=== PATIENT | female | born 1965 | race Caucasian/White ===

== ENCOUNTER 2017-05-14 08:19 | Emergency (ER) | payer OTHER ==
[~2017-05-14] VITALS: Ht 170.2 cm; Wt 104.3 kg
[~2017-05-14 08:19] MED LIST: ASPI-992 PO; CYAN100053 IJ; DOCU100C37 PO; FLC100T1 PO; FLUO20CA25 PO; FLUO20CA42 PO; FLUT16SP22 NS; FLUT50DI IH; HYDR-3454 PO; HYDR-3816 PO; HYDR-757 PO; IBUP-1773 PO; IBUP1TAB17 PO; INSASP10V SQ; INSU100V6 SQ; LEVO100T7 PO; LEVO88TA26 PO; LISI-552 PO; LISI1TAB8 PO; MAGN400C PO; MECL25TA56 PO; METF-472 PO; METF500T8 PO; MTF500T PO; NYSTATIN PO; ONDN4T PO; PHEN37.53 PO; PHEN37.555 PO; POTA99TA15 PO; SIME80TA16 PO; SULF-222 PO; lantus SQ; potassium PO
[2017-05-14] MEDS ORDERED: SYNTHROID (08:37)
[2017-05-14 08:50] LABS: BILIRUBIN,URINE NEGATIVE (NEGATIVE); KETONES,URINE NEGATIVE (NEGATIVE); LEUKOCYTE ESTERASE ,URINE NEGATIVE (NEGATIVE); NITRITE,URINE NEGATIVE (NEGATIVE); PH,URINE 5 (5-9); PROTEIN,URINE 2+ (NEGATIVE); UROBILINOGEN,URINE NORMAL (NORMAL)
[2017-05-14 09:04] LABS: WBC,URINE RARE /HPF
[2017-05-14 09:22] LABS: BASOPHILS % (AUTO) 0 % (0-10); EOSINOPHILS % (AUTO) 0 % (0-10); LYMPHOCYTES # (AUTO) 1.3 X 10^3 (1.0-4.0); LYMPHOCYTES % (AUTO) 15 % (12-44); MEAN CORPUSCULAR HEMOGLOBIN 28 PG (25-34); MEAN CORPUSCULAR HGB CONC 33 G/DL (32-36); MEAN CORPUSCULAR VOLUME 85 FL (80-99); MONOCYTES # (AUTO) 0.2 X 10^3 (0.0-1.0); MONOCYTES % (AUTO) 3 % (0-12); NEUTROPHILS # (AUTO) 7.3 X 10^3 (1.8-7.8); NEUTROPHILS % (AUTO) 82 % (42-75); PLATELET COUNT 333 10^3/uL (130-400); RED BLOOD COUNT 3.85 10^6/uL (4.35-5.85); RED CELL DISTRIBUTION WIDTH 12.8 % (10.0-14.5); WHITE BLOOD COUNT 8.8 10^3/uL (4.3-11.0)
[2017-05-14 09:44] LABS: ALANINE AMINOTRANSFERASE 13 U/L (0-55); ALBUMIN 3.8 GM/DL (3.2-4.5); ANION GAP 8 MMOL/L (5-14); ASPARTATE AMINO TRANSFERASE 30 U/L (5-34); BILIRUBIN,TOTAL 0.3 MG/DL (0.1-1.0); BLOOD UREA NITROGEN 24 MG/DL (7-18); BUN/CREATININE RATIO 25 (0-20); CALCIUM 8.6 MG/DL (8.5-10.1); CARBON DIOXIDE 24 MMOL/L (21-32); CHLORIDE 105 MMOL/L (98-107); CREATININE SERUM 0.95 MG/DL (0.60-1.30); GFR ESTIMATED > 60; GLUCOSE 250 MG/DL (70-105); HEMOLYSIS 3 (-100-29); ICTERUS 0.4 (-100-1.9); LIPEMIA -1 (-100-49); POTASSIUM 4.7 MMOL/L (3.6-5.0); SODIUM 137 MMOL/L (135-145); TOTAL PROTEIN 6.8 GM/DL (6.4-8.2)
[2017-05-14 09:50] LABS: ACETAMINOPHEN < 10 UG/ML (10-30); ALCOHOL < 10 MG/DL (<10)
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
--- NOTE | 2017-05-14 11:04 | Diagnostic Imaging Report ---
PROCEDURE: CT head without contrast. TECHNIQUE: Multiple contiguous axial images were obtained through the brain without the use of intravenous contrast. INDICATION: Altered mental status . FINDINGS: There is no intracranial hemorrhage, edema or mass effect. The brain parenchyma appears unremarkable. No hydrocephalus. The visualized portions of the orbits and paranasal sinuses appear unremarkable. IMPRESSION: Unremarkable study. Dictated by: Dictated on workstation # [id number]
[2017-05-14 11:38] VITALS: BP 137/73
--- OUTSIDE RECORDS SUMMARY | 2017-05-14 22:52 | XMS REPORT | Continuity of Care Document ---
Author Author [facility] Organization [facility] Address Unknown Phone Unavailable Allergies Active Description Code Type Severity Reaction Onset Reported/Identified Relationship to Patient Clinical Status Yes No Known Drug Allergies [id number] Drug Allergy Unknown N/ A 02/16/2016 Medications Problems Date Dx Coded Attending Type Code Diagnosis Diagnosed By 07/25/2014 FRANKLIN BASILIO DO Ot 021.9 TULAREMIA NOS 07/25/2014 FRANKLIN BASILIO DO Ot 088.81 LYME DISEASE 07/25/2014 FRANKLIN BASILIO DO Ot 250.01 DIAB ARNAUD WO COMPL, TYPE I [JUVENILE TYP 07/25/2014 FRANKLIN BASILIO DO Ot 276.51 DEHYDRATION 07/25/2014 FRANKLIN BASILIO DO Ot 278.00 OBESITY, NOS 07/25/2014 FRANKLIN BASILIO DO Ot 401.9 HYPERTENSION NOS 07/25/2014 FRANKLIN BASILIO DO Ot 584.9 ACUTE RENAL FAILURE, UNSPECIFIED 07/25/2014 FRANKLIN BASILIO DO Ot 780.4 DIZZINESS AND GIDDINESS 07/25/2014 FRANKLIN BASILIO DO Ot 784.0 HEADACHE 07/25/2014 FRANKLIN BASILIO DO Ot 787.02 NAUSEA ALONE 07/25/2014 FRANKLIN BASILIO DO Ot V85.36 BODY MASS INDEX 36.0-36.9, ADULT 09/20/2014 SMITH BASILIO Ot 021.9 TULAREMIA NOS 08/05/2015 STEFANY MARROQUIN APRN Ot 813.44 FX LOW RADIUS W ULNA-CL 08/05/2015 STEFANY MARROQUIN APRN Ot 959.3 ELB/FOREARM/WRST INJ NOS 08/05/2015 STEFANY MARROQUIN APRN Ot E000.8 OTHER EXTERNAL CAUSE STATUS 08/05/2015 STEFANY MARROQUIN APRN Ot E885.9 FALL FROM SLIPPING, TRIPPING, OR STUMBLI 11/18/2015 SMITH BASILIO Ot E03.9 11/18/2015 CHETNASMITH QA SOFTWARE TESTER Ot E10.9 11/18/2015 CHETNASMITH QA SOFTWARE TESTER Ot E23.0 11/18/2015 BASILIOSMITH STOLL QA SOFTWARE TESTER Ot M79.1 11/18/2015 CHETNASMITH QA SOFTWARE TESTER Ot R60.9 01/17/2016 CHETNASMITH QA SOFTWARE TESTER Ot E01.0 02/10/2016 Ot 255.41 02/10/2016 Ot 250.01 02/10/2016 Ot 518.89 02/10/2016 Ot 611.72 02/10/2016 Ot 785.6 02/10/2016 Ot 786.2 02/10/2016 Ot V76.12 02/10/2016 Ot 518.89 02/10/2016 Ot 611.72 02/10/2016 Ot 217 02/10/2016 Ot 786.50 02/10/2016 Ot V58.67 02/10/2016 Ot V58.69 02/10/2016 CHETNASMITH QA SOFTWARE TESTER Ot 790.99 02/10/2016 CHETNASMITH QA SOFTWARE TESTER Ot 368.8 02/10/2016 CHETNASMITH QA SOFTWARE TESTER Ot 784.0 02/10/2016 CHETANSMITH QA SOFTWARE TESTER Ot 794.4 02/10/2016 Ot 021.9 02/10/2016 CHETNASMITH QA SOFTWARE TESTER Ot E03.9 02/10/2016 CHETNA SMITH Berry QA SOFTWARE TESTER Ot E10.9 02/10/2016 CHETNASMITH QA SOFTWARE TESTER Ot E23.0 02/10/2016 CHETNA SMITH Berry QA SOFTWARE TESTER Ot M79.1 02/10/2016 CHETNA SMITH Berry QA SOFTWARE TESTER Ot R60.9 02/10/2016 CHETNA SMITH L QA SOFTWARE TESTER Ot E01.0 02/10/2016 STEPHANIE RIVERA, LYNNE Prieto Ot E04.1 NONTOXIC SINGLE THYROID NODULE 02/10/2016 STEPHANIE RIVERA, LYNNE Prieto Ot L91.8 OTHER HYPERTROPHIC DISORDERS OF THE SKIN 02/10/2016 STEPHANIE RIVERA, LYNNE M Ot Z01.812 ENCOUNTER FOR PREPROCEDURAL LABORATORY E 02/10/2016 STEPHANIE RIVERA, LYNNE M Ot Z11.2 ENCOUNTER FOR SCREENING FOR OTHER BACTER 02/11/2016 STEPHANIE RIVERA, LYNNE M Ot E04.1 02/11/2016 STEPHANIE RIVERA, LYNNE Prieto Ot L91.8 02/11/2016 STEPHANIE RIVERA, LYNNE M Ot Z01.812 02/11/2016 STEPHANIE RIVERA, LYNNE Prieto Ot Z11.2 02/16/2016 STEPHANIE RIVERA, LYNNE Prieto Ot E04.1 02/16/2016 STEPHANIE RIVERA, LYNNE Prieto Ot L91.8 02/16/2016 STEPHANIE RIVERA, LYNNE M Ot Z01.812 02/16/2016 STEPHANIE RIVERA, LYNNE M Ot Z11.2 02/16/2016 Ot 021.9 02/17/2016 STEPHANIE RIVERA, LYNNE Prieto Ot E04.1 NONTOXIC SINGLE THYROID NODULE 02/17/2016 STEPHANIE RIVERA, LYNNE Prieto Ot E11.9 TYPE 2 DIABETES MELLITUS WITHOUT COMPLIC 02/17/2016 STEPHANIE RIVERA, LYNNE Prieto Ot L91.8 OTHER HYPERTROPHIC DISORDERS OF THE SKIN 07/19/2016 SMITH BASILIO QA SOFTWARE TESTER Ot R10.2 PELVIC AND PERINEAL PAIN 07/19/2016 SMITH BASILIO QA SOFTWARE TESTER Ot Z12.31 ENCNTR SCREEN MAMMOGRAM FOR MALIGNANT NE 07/20/2016 SMITH BASILIO QA SOFTWARE TESTER Ot R10.2 PELVIC AND PERINEAL PAIN 07/20/2016 SMITH BASILIO QA SOFTWARE TESTER Ot Z12.31 ENCNTR SCREEN MAMMOGRAM FOR MALIGNANT NE 08/02/2016 SMITH BASILIO QA SOFTWARE TESTER Ot R10.2 PELVIC AND PERINEAL PAIN 08/02/2016 SMITH BASILIO QA SOFTWARE TESTER Ot Z12.31 ENCNTR SCREEN MAMMOGRAM FOR MALIGNANT NE 09/11/2016 Ot 786.50 CHEST PAIN NOS 09/11/2016 Ot V58.67 LONG-TERM (CURRENT) USE OF INSULIN 09/11/2016 Ot V58.69 OTH MED,LT,CURRENT USE 09/11/2016 SMITH BASILIO QA SOFTWARE TESTER Ot 790.99 BLOOD EXAM - OTH NONSPECIFIC FINDINGS 09/11/2016 SMITH BASILIO QA SOFTWARE TESTER Ot 368.8 VISUAL DISTURBANCES NEC 09/11/2016 SMITH BASILIO QA SOFTWARE TESTER Ot 784.0 HEADACHE 09/11/2016 SMITH BASILIO QA SOFTWARE TESTER Ot 794.4 ABN KIDNEY FUNCT STUDY 09/11/2016 Ot 021.9 TULAREMIA NOS 09/11/2016 BASILIOSMITH STOLL QA SOFTWARE TESTER Ot E03.9 HYPOTHYROIDISM, UNSPECIFIED 09/11/2016 BASILIOSMITH STOLL QA SOFTWARE TESTER Ot E10.9 TYPE 1 DIABETES MELLITUS WITHOUT COMPLIC 09/11/2016 BASILIOSMITH STOLL QA SOFTWARE TESTER Ot 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 09/11/2016 BASILIOSMITH STOLL QA SOFTWARE TESTER Ot M79.1 MYALGIA 09/11/2016 BASILIOSMITH STOLL QA SOFTWARE TESTER Ot R60.9 EDEMA, UNSPECIFIED 09/11/2016 BASILIOSMITH STOLL QA SOFTWARE TESTER Ot 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 09/11/2016 BASILIO SMITH Berry QA SOFTWARE TESTER Ot R10.2 PELVIC AND PERINEAL PAIN 09/11/2016 BASILIOSMITH STOLL QA SOFTWARE TESTER Ot Z12.31 ENCNTR SCREEN MAMMOGRAM FOR MALIGNANT NE 09/11/2016 PAEVL PAPPAS DO Ot D25.9 LEIOMYOMA OF UTERUS, UNSPECIFIED 09/11/2016 PAVEL PAPPAS DO Ot R10.2 PELVIC AND PERINEAL PAIN 09/11/2016 PAVEL PAPPAS DO Ot Z01.812 ENCOUNTER FOR PREPROCEDURAL LABORATORY E 09/11/2016 PAVEL PAPPAS DO Ot Z11.2 ENCOUNTER FOR SCREENING FOR OTHER BACTER 09/12/2016 PAVEL PAPPAS DO Ot D25.9 LEIOMYOMA OF UTERUS, UNSPECIFIED 09/12/2016 PAVEL PAPPAS DO Ot R10.2 PELVIC AND PERINEAL PAIN 09/12/2016 PAVEL PAPPAS DO Ot Z01.812 ENCOUNTER FOR PREPROCEDURAL LABORATORY E 09/12/2016 PAVEL PAPPAS DO Ot Z11.2 ENCOUNTER FOR SCREENING FOR OTHER BACTER 09/26/2016 Ot 786.50 CHEST PAIN NOS 09/26/2016 Ot V58.67 LONG-TERM (CURRENT) USE OF INSULIN 09/26/2016 Ot V58.69 OTH MED,LT,CURRENT USE 09/26/2016 SMITH BASILIO QA SOFTWARE TESTER Ot 790.99 BLOOD EXAM - OTH NONSPECIFIC FINDINGS 09/26/2016 SMITH BASILIO QA SOFTWARE TESTER Ot 368.8 VISUAL DISTURBANCES NEC 09/26/2016 SMITH BASILIO QA SOFTWARE TESTER Ot 784.0 HEADACHE 09/26/2016 SMITH BASILIO QA SOFTWARE TESTER Ot 794.4 ABN KIDNEY FUNCT STUDY 09/26/2016 Ot 021.9 TULAREMIA NOS 09/26/2016 SMITH BASILIO QA SOFTWARE TESTER Ot E03.9 HYPOTHYROIDISM, UNSPECIFIED 09/26/2016 SMITH BASILIO QA SOFTWARE TESTER Ot E10.9 TYPE 1 DIABETES MELLITUS WITHOUT COMPLIC 09/26/2016 BASILIOSMITH STOLL QA SOFTWARE TESTER Ot 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 09/26/2016 BASILIOSMITH STOLL QA SOFTWARE TESTER Ot M79.1 MYALGIA 09/26/2016 BASILIO SMITH Berry QA SOFTWARE TESTER Ot R60.9 EDEMA, UNSPECIFIED 09/26/2016 SMITH BASILIO QA SOFTWARE TESTER Ot 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 09/26/2016 SMITH BASILIO QA SOFTWARE TESTER Ot R10.2 PELVIC AND PERINEAL PAIN 09/26/2016 SMITH BASILIO QA SOFTWARE TESTER Ot Z12.31 ENCNTR SCREEN MAMMOGRAM FOR MALIGNANT NE 09/26/2016 SMITH BASILIO QA SOFTWARE TESTER Ot R10.2 PELVIC AND PERINEAL PAIN 09/26/2016 BASILIOSMITH STOLL QA SOFTWARE TESTER Ot R92.8 OTH ABN AND INCONCLUSIVE FINDINGS ON DX 09/27/2016 SMITH BASILIO QA SOFTWARE TESTER Ot R92.8 OTH ABN AND INCONCLUSIVE FINDINGS ON DX 09/28/2016 SMITH BASILIO QA SOFTWARE TESTER Ot R10.2 PELVIC AND PERINEAL PAIN 09/28/2016 Ot 786.50 CHEST PAIN NOS 09/28/2016 Ot V58.67 LONG-TERM (CURRENT) USE OF INSULIN 09/28/2016 Ot V58.69 OTH MED,LT,CURRENT USE 09/28/2016 BASILIOSMITH STOLL QA SOFTWARE TESTER Ot 790.99 BLOOD EXAM - OTH NONSPECIFIC FINDINGS 09/28/2016 SMITH BASILIO QA SOFTWARE TESTER Ot 368.8 VISUAL DISTURBANCES NEC 09/28/2016 SMITH BASILIO QA SOFTWARE TESTER Ot 784.0 HEADACHE 09/28/2016 SMITH BASILIO QA SOFTWARE TESTER Ot 794.4 ABN KIDNEY FUNCT STUDY 09/28/2016 Ot 021.9 TULAREMIA NOS 09/28/2016 SMITH BASILIO QA SOFTWARE TESTER Ot E03.9 HYPOTHYROIDISM, UNSPECIFIED 09/28/2016 SMITH BASILIO QA SOFTWARE TESTER Ot E10.9 TYPE 1 DIABETES MELLITUS WITHOUT COMPLIC 09/28/2016 SMITH BASILIO QA SOFTWARE TESTER Ot 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 09/28/2016 BASILIOSMITH STOLL QA SOFTWARE TESTER Ot M79.1 MYALGIA 09/28/2016 BASILIOSMITH STOLL QA SOFTWARE TESTER Ot R60.9 EDEMA, UNSPECIFIED 09/28/2016 SMITH BASILIO QA SOFTWARE TESTER Ot 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 09/28/2016 SMITH BASILIO QA SOFTWARE TESTER Ot R10.2 PELVIC AND PERINEAL PAIN 09/28/2016 SMITH BASILIO QA SOFTWARE TESTER Ot Z12.31 ENCNTR SCREEN MAMMOGRAM FOR MALIGNANT NE 09/28/2016 BASILIO SMITH Berry QA SOFTWARE TESTER Ot R10.2 PELVIC AND PERINEAL PAIN 09/28/2016 BASILIOSMITH STOLL QA SOFTWARE TESTER Ot R92.8 OTH ABN AND INCONCLUSIVE FINDINGS ON DX 09/29/2016 PAVEL PAPPAS DO Ot D25.1 INTRAMURAL LEIOMYOMA OF UTERUS 09/29/2016 PAVEL PAPPAS DO Ot D25.9 LEIOMYOMA OF UTERUS, UNSPECIFIED 09/29/2016 PAVEL PAPPAS DO Ot 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 09/29/2016 PAVEL PAPPAS DO Ot R10.2 PELVIC AND PERINEAL PAIN 10/04/2016 PAVEL PAPPAS DO Ot D25.1 INTRAMURAL LEIOMYOMA OF UTERUS 10/04/2016 PAVEL PAPPAS DO Ot 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 10/04/2016 PAVEL PAPPAS DO S Ot R10.2 PELVIC AND PERINEAL PAIN 10/04/2016 SMITH BASILIO QA SOFTWARE TESTER Ot R10.2 PELVIC AND PERINEAL PAIN 10/11/2016 SMITH BASILIOP Ot R92.8 OTH ABN AND INCONCLUSIVE FINDINGS ON DX 11/03/2016 SMITH BASILIO QA SOFTWARE TESTER Ot M48.06 SPINAL STENOSIS, LUMBAR REGION 11/17/2016 SMITH BASILIO QA SOFTWARE TESTER Ot M48.06 SPINAL STENOSIS, LUMBAR REGION Procedures Results Test Result Range Complete blood count (CBC) with automated white blood cell (WBC) differential - 09/11/16 15:40 Blood leukocytes automated count (number/volume) 5.7 10*3/ uL 4.3-11.0 Blood erythrocytes automated count (number/volume) 3.92 10*6 /uL 4.35-5.85 Venous blood hemoglobin measurement (mass/volume) 11.0 g/dL 11.5-16.0 Blood hematocrit (volume fraction) 34 % 35-52 Automated erythrocyte mean corpuscular volume 86 [foz_us] 80-99 Automated erythrocyte mean corpuscular hemoglobin (mass per erythrocyte) 28 pg 25-34 Automated erythrocyte mean corpuscular hemoglobin concentration measurement ( mass/volume) 33 g/dL 32-36 Automated erythrocyte distribution width ratio 12.9 % 10.0-14.5 Automated blood platelet count (count/volume) 350 10*3/uL 130-400 Automated blood platelet mean volume measurement 10.2 [foz_ us] 7.4-10.4 Automated blood neutrophils/100 leukocytes 50 % 42-75 Automated blood lymphocytes/100 leukocytes 40 % 12-44 Blood monocytes/100 leukocytes 6 % 0-12 Automated blood eosinophils/100 leukocytes 3 % 0-10 Automated blood basophils/100 leukocytes 1 % 0-10 Blood neutrophils automated count (number/volume) 2.9 10*3 1.8-7.8 Blood lymphocytes automated count (number/volume) 2.3 10*3 1.0-4.0 Blood monocytes automated count (number/volume) 0.4 10*3 0.0-1.0 Automated eosinophil count 0.2 10*3/uL 0.0-0.3 Automated blood basophil count (count/volume) 0.0 10*3/uL 0.0-0.1 Blood type T Indirect antibody screen panel - 09/11/16 15:40 ABO+Rh group OP NRG Blood group antibody screen NEGATIVE NRG Methicillin resistant Staphylococcus aureus (MRSA) screening culture - 15:40 Methicillin resistant Staphylococcus aureus (MRSA) screening culture NEG NRG Urine beta human chorionic gonadotropin (hCG) measurement - 09/28/16 06:10 Urine beta human chorionic gonadotropin (hCG) measurement NEGATIVE NEGATIVE Capillary blood glucose measurement by glucometer (mass/volume) - 09/28/16 06: 33 Capillary blood glucose measurement by glucometer (mass/volume) 330 mg/dL 70-110 Blood type T Indirect antibody screen panel - 09/28/16 06:33 ABO+Rh group OP NRG Transfusion band number [id number] NRG Blood group antibody screen NEGATIVE NRG Capillary blood glucose measurement by glucometer (mass/volume) - 09/28/16 09: 18 Capillary blood glucose measurement by glucometer (mass/volume) 292 mg/dL 70-110 Encounters ACCT No. Visit Date/Time Discharge Status Pt. Type Provider Facility Loc./Unit Complaint [id number] 09/28/2016 06:10:00 2015 11:46:00 DIS Outpatient PAVEL PAPPAS DO [facility] SDC PELVIC PAIN [id number] 09/11/2016 15:14:00 2015 15:45:00 DIS Outpatient PAVEL PAPPAS DO [facility] PREOP PELVIC PAIN [id number] 02/10/2016 08:48:00 2015 09:25:00 DIS Outpatient STEPHANIE RIVERA, LYNNE Prieto [facility] PREOP THYROID NODULE [id number] 08/05/2015 16:07:00 2014 17:11:00 DIS Emergency STEFANY MARROQUIN APRN [facility] ER L WRIST PAIN/INJ [id number] 07/10/2014 10:18:00 2013 00:01:00 DIS Outpatient SMITH BASILIO [facility] SURG RCR TU/ANEMIA [id number] 08/17/2014 08:28:00 2013 23:59:59 CLS Outpatient SMITH BASILIO QA SOFTWARE TESTER [facility] RAD HEADACHE BLURRY VISION [id number] 07/31/2014 13:52:00 2013 23:59:59 CLS Preadmit FRANKLIN BASILIO DO [facility] LAB [id number] 07/29/2014 10:51:00 2013 23:59:59 CLS Outpatient SMITH BASILIO QA SOFTWARE TESTER [facility] LAB ELEVATED BUN AND CREATINE [id number] 07/21/2014 18:42:00 2013 12:20:00 DIS Inpatient FRANKLIN BASILIO DO [facility] 4TH ARF,UTI [id number] 10/31/2016 12:17:00 ACT Outpatient SMITH BASILIO QA SOFTWARE TESTER [facility] RAD RADIOCULOPATHY [id number] 09/26/2016 08:25:00 ACT Outpatient RICCARDO BASILIOIA Jamal QA SOFTWARE TESTER [facility] RAD ABN MAMMO [id number] 09/22/2016 10:04:00 ACT Outpatient SMITH BASILIO QA SOFTWARE TESTER [facility] RAD PELVIC PAIN [id number] 07/18/2016 13:48:00 ACT Outpatient RICCARDO BASILIOIA Jamal QA SOFTWARE TESTER [facility] RAD PELVIC PAIN,ROUTINE [id number] 02/16/2016 08:15:00 ACT Outpatient STEPHANIE RIVERA, LYNNE Prieto [facility] THYROID NODULE,SKIN TAG [id number] 01/03/2016 09:06:00 ACT Outpatient SMITH BASILIO QA SOFTWARE TESTER [facility] RAD ENLARGED THYROID [id number] 11/04/2015 10:25:00 ACT Outpatient RICCARDO BASILIOIA L QA SOFTWARE TESTER [facility] LAB TYPE I DM,HYPOPIT,HYPOTHYROID,EDEMA,MYALJIA [id number] 09/21/2014 00:00:00 Document Registration [id number] 09/28/2011 06:18:00 Document Registration [id number] 01/17/2011 10:56:00 Document Registration [id number] 01/04/2011 14:58:00 Document Registration [id number] 12/28/2010 14:40:00 Document Registration [id number] 09/22/2010 09:15:00 Document Registration
== END 2017-05-14 11:38 | disposition home or self-care (01) ==
LOC: EDUNIT# 08:19 → ER 08:22
DX: E10.649 Type 1 diabetes mellitus with hypoglycemia without coma (principal); I10 Essential (primary) hypertension; F32.9 Major depressive disorder, single episode, unspecified; Z79.4 Long term (current) use of insulin
CPT/HCPCS: 36415; 70450; 80053; 80306; 80320; 80329; 81000; 82962; 85025; 99283

== ENCOUNTER 2017-06-11 10:12 | Outpatient (RCR) | payer OTHER ==
[~2017-06-11 10:12] MED LIST changes: +SYNTHROID
== END 2017-08-18 | disposition home or self-care (01) ==
LOC: CARD 10:12
PROVIDERS: ATTEND Nurse Practitioner Family
DX: R00.2 Palpitations (principal)
CPT/HCPCS: 93225; 93226

== ENCOUNTER 2019-10-17 17:01 | Emergency (ER) | payer OTHER ==
[~2019-10-17] VITALS: Ht 167 cm; Wt 109.7 kg
[~2019-10-17 17:01] MED LIST changes: +HYDR-34 PO; -HYDR-3454 PO; +HYDR-3455 PO; -HYDR-3816 PO; +HYDR-4226 PO; -HYDR-757 PO
[2019-10-17] MEDS ORDERED: KETOROLAC 30 MG/ML VIAL IVP STA (17:56)
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
[2019-10-17] MEDS ORDERED: DEXTROSE 50% 50 ML (IMS) SYR ONE ×2 (18:35→19:41)
[2019-10-17] MEDS ORDERED: LORazepam INJ 2 MG/ML (ATIVAN) VIAL ONE (18:37)
[2019-10-17 18:47] LABS: BASOPHILS % (AUTO) 0 % (0-10); EOSINOPHILS # (AUTO) 0.1 10^3/uL (0.0-0.3); EOSINOPHILS % (AUTO) 2 % (0-10); HEMATOCRIT 34 % (35-52); HEMOGLOBIN 11.3 G/DL (11.5-16.0); LYMPHOCYTES % (AUTO) 30 % (12-44); MEAN CORPUSCULAR HEMOGLOBIN 28 PG (25-34); MEAN CORPUSCULAR HGB CONC 33 G/DL (32-36); MEAN CORPUSCULAR VOLUME 84 FL (80-99); MEAN PLATELET VOLUME 10.4 FL (7.4-10.4); MONOCYTES # (AUTO) 0.5 X 10^3 (0.0-1.0); MONOCYTES % (AUTO) 7 % (0-12); NEUTROPHILS # (AUTO) 4.1 X 10^3 (1.8-7.8); NEUTROPHILS % (AUTO) 61 % (42-75); PLATELET COUNT 417 10^3/uL (130-400); WHITE BLOOD COUNT 6.7 10^3/uL (4.3-11.0)
[2019-10-17 19:07] LABS: PROTHROMBIN TIME PATIENT 13.5 SEC (12.2-14.7)
[2019-10-17 19:15] LABS: ALBUMIN 4.4 GM/DL (3.2-4.5); BILIRUBIN,TOTAL 0.2 MG/DL (0.1-1.0); CALCIUM 9.6 MG/DL (8.5-10.1); CREATININE SERUM 1.21 MG/DL (0.60-1.30); POTASSIUM 4.1 MMOL/L (3.6-5.0); TOTAL PROTEIN 7.4 GM/DL (6.4-8.2)
[2019-10-17] MEDS ORDERED: HOLD METFORMIN - RECEIVED CONTRAST 20 ML VIAL IV SCH (19:30)
[2019-10-17] MEDS ORDERED: IOHEXOL 350 MG/ML 100 ML (OMNIPAQUE 350) VIAL IV ONE (19:30)
[2019-10-17] MEDS ORDERED: NS 100 ML (IVPB) BAG IV ONE (19:30)
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
--- NOTE | 2019-10-17 19:43 | Diagnostic Imaging Report ---
INDICATION: Right upper back and chest pain. EXAMINATION: PA and lateral chest. FINDINGS: Heart size and pulmonary vascularity are normal. Lungs are clear. There are no effusions or pneumothoraces. IMPRESSION: Negative chest. Dictated by: Dictated on workstation # [id number]
[2019-10-17] MEDS ORDERED: DEXTROSE 50% 50 ML (IMS) SYR IV ONE (19:45)
[2019-10-17 19:48] LABS: BILIRUBIN,URINE NEGATIVE (NEGATIVE); CLARITY,URINE CLEAR; COLOR,URINE YELLOW; GLUCOSE, URINE (UA) NEGATIVE (NEGATIVE); KETONES,URINE NEGATIVE (NEGATIVE); LEUKOCYTE ESTERASE ,URINE 1+ (NEGATIVE); NITRITE,URINE NEGATIVE (NEGATIVE); PH,URINE 5.5 (5-9); PROTEIN,URINE TRACE (NEGATIVE)
[2019-10-17] MEDS ORDERED: KETO10TA PO (19:56)
[2019-10-17] MEDS ORDERED: CYCL10TA9 PO (19:56)
[2019-10-17 19:59] LABS: RBC,URINE 0-2 /HPF
[2019-10-17 20:00] LABS: BACTERIA,URINE TRACE /HPF
[2019-10-17] MEDS ORDERED: NITR-65 PO (20:03)
[2019-10-17 20:39] VITALS: BP 113/68
--- OUTSIDE RECORDS SUMMARY | 2019-11-12 15:44 | XMS REPORT | Clinical Summary ---
Author Author [facility] Organization [facility] Address Unknown Phone Unavailable Care Team Providers Care Strategic Partnership Manager Name Role Phone BanguraJerson PCP Allergies Not on File Medications Not on file Active Problems Not on file Social History Date Tobacco Use Types Packs/Day Years Used Never Assessed Sex Assigned at Date Recorded Not on file Industry Job Start Date Occupation Not on file Not on file Not on file Travel End Travel History Travel Start No recent travel history available. 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
--- OUTSIDE RECORDS SUMMARY | 2019-11-12 15:44 | XMS REPORT | Encounter Summary ---
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 [address] [place] [address] Social History Date Tobacco Use Types Packs/Day Years Used Never Assessed Sex Assigned at Date Recorded Not on file Industry Job Start Date Occupation Not on file Not on file Not on file Travel End Travel History Travel Start No recent travel history available. documented as of this encounter Plan of Treatment Not on filedocumented as of this encounter Visit Diagnoses Not on filedocumented in this encounter
--- OUTSIDE RECORDS SUMMARY | 2019-11-12 15:44 | XMS REPORT | Continuity of Care Document ---
Author Organization Unknown Address Unknown Phone Unavailable Allergies Active Description Code Type Severity Reaction Onset Reported/Identified Relationship to Patient Clinical Status Yes No Known Drug Allergies [id number] Drug Allergy Unknown N/A 02/16/2016 Medications There is no data. Problems Date Dx Coded Attending Type Code [...] W ULNA-CL 08/05/2015 STEFANY MARROQUIN APRN Ot 959 .3 ELB/FOREARM/WRST INJ NOS 08/05/2015 STEFANY MARROQUIN APRN Ot E000.8 OTHER EXTERNAL CAUSE STATUS 08/05/2015 STEFANY MARROQUIN APRN Ot E885.9 FALL FROM SLIPPING, TRIPPING, OR STUMBLI 11/18/2015 SMITH BASILIO Ot E03.9 11/18/2015 CHETNASMITH AUTOMOBILE BODY CUSTOMIZER Ot E10.9 11/18/2015 CHETNASMITH AUTOMOBILE BODY CUSTOMIZER Ot E23.0 11/18/2015 CHETNASMITH AUTOMOBILE B[employer] CUSTOMIZER Ot M79.1 11/18/2015 CHETNASMITH AUTOMOBILE BODY CUSTOMIZER Ot R60.9 01/17/2016 CHETNASMITH AUTOMOBILE BODY CUSTOMIZER Ot E01.0 02/10/2016 Ot 255.41 02/10/2016 Ot 250.01 02/10/2016 Ot 518.89 02/10/2016 Ot 611.72 02/10/2016 Ot 785.6 02/10/2016 Ot 786.2 02/10/2016 Ot V76.12 02/10/2016 Ot 518.89 02/10/2016 Ot 611.72 02/10/2016 Ot 217 02/10/2016 Ot 786.50 02/10/2016 Ot V58.67 02/10/2016 Ot V58.69 02/10/2016 CHETNASMITH AUTOMOBILE B[employer] CUSTOMIZER Ot 790.99 02/10/2016 CHETNA SMITH Berry AUTOMOBILE BODY CUSTOMIZER Ot 368.8 02/10/2016 CHETNA SMITH Berry AUTOMOBILE BODY CUSTOMIZER Ot 784.0 02/10/2016 CHETNA SMITH Berry AUTOMOBILE BODY CUSTOMIZER Ot 794.4 02/10/2016 Ot 021.9 02/10/2016 CHETNA SMITH Berry AUTOMOBILE BODY CUSTOMIZER Ot E03.9 02/10/2016 CHETNA SMITH Berry AUTOMOBILE BODY CUSTOMIZER Ot E10.9 02/10/2016 CHETNA SMITH Berry AUTOMOBILE BODY CUSTOMIZER Ot E23.0 02/10/2016 CHETNA SMITH Berry AUTOMOBILE BODY CUSTOMIZER Ot M79.1 02/10/2016 CHETNA SMITH Berry AUTOMOBILE BODY CUSTOMIZER Ot R60.9 02/10/2016 CHETNA SMITH L AUTOMOBILE BODY CUSTOMIZER Ot E01.0 02/10/2016 STEPHANIE RIVERA, LYNNE Prieto Ot E04.1 NONTOXIC SINGLE THYROID NODULE 02/10/2016 STEPHANIE RIVERA, LYNNE Prieto Ot L91.8 OTHER HYPERTROPHIC DISORDERS OF THE SKIN 02/10/2016 STEPHANIE RIVERA, LYNNE Prieto Ot Z01.812 ENCOUNTER FOR PREPROCEDURAL LABORATORY E 02/10/2016 STEPHANIE RIVERA, LYNNE Prieto Ot Z11.2 ENCOUNTER FOR SCREENING FOR OTHER BACTER 02/11/2016 STEPHANIE RIVERA, LYNNE Prieto Ot E04.1 02/11/2016 STEPHANIE RIVERA, LYNNE Prieto Ot L91.8 02/11/2016 STEPHANIE RIVERA, LYNNE M Ot Z01.812 02/11/2016 STEPHANIE RIVERA, LYNNE M Ot Z11.2 02/16/2016 STEPHANIE RIVERA, LYNNE Prieto Ot E04.1 02/16/2016 STEPHANIE RIVERA, LYNNE Prieto Ot L91.8 02/16/2016 STEPHANIE RIVERA, LYNNE Prieto Ot Z01.812 02/16/2016 STEPHANIE RIVERA, LYNNE Prieto Ot Z11.2 02/16/2016 Ot 021.9 02/17/2016 STEPHANIE RIVERA, LYNNE Prieto Ot E04.1 NONTOXIC SINGLE THYROID NODULE 02/17/2016 STEPHANIE RIVERA, LYNNE Prieto Ot E11.9 TYPE 2 DIABETES MELLITUS WITHOUT COMPLIC 02/17/2016 STEPHANIE RIVERA, LYNNE Prieto Ot L91.8 OTHER HYPERTROPHIC DISORDERS OF THE SKIN 07/19/2016 SMITH BASILIO [employer] CUSTOMIZER Ot R10.2 PELVIC AND PERINEAL PAIN 07/19/2016 SMITH BASILIO AUTOMOBILE BODY CUSTOMIZER Ot Z12.31 ENCNTR SCREEN MAMMOGRAM FOR MALIGNANT NE 07/20/2016 SMITH BASILIO AUTOMOBILE BODY CUSTOMIZER Ot R10.2 PELVIC AND PERINEAL PAIN 07/20/2016 SMITH BASILIO AUTOMOBILE BODY CUSTOMIZER Ot Z12.31 ENCNTR SCREEN MAMMOGRAM FOR MALIGNANT NE 08/02/2016 SMITH BASILIO AUTOMOBILE BODY CUSTOMIZER Ot R10.2 PELVIC AND PERINEAL PAIN 08/02/2016 SMITH BASILIO AUTOMOBILE BODY CUSTOMIZER Ot Z12.31 ENCNTR SCREEN MAMMOGRAM FOR MALIGNANT NE 09/11/[address] PAIN NOS 09/11/2016 Ot V58.67 DERRELL G-TERM (CURRENT) USE OF INSULIN 09/11/2016 Ot V58.69 OTH MED,LT,CURRENT USE 09/11/2016 SMITH BASILIO [employer] CUSTOMIZER Ot 790.99 BLOOD EXAM - OT NONSPECIFIC FINDINGS 09/11/2016 SMITH BASILIO AUTOMOBILE B[employer] CUSTOMIZER Ot 368.8 VISUAL DISTURBANCES NEC 09/11/2016 BASILIOSMITH AUTOMOBILE BODY CUSTOMIZER Ot 784.0 HEADACHE 09/11/2016 BASILIOSMITH STOLL AUTOMOBILE BODY CUSTOMIZER Ot 794.4 ABN KIDNEY FUNCT STUDY 09/11/2016 Ot 021.9 TOBIAS REMIA NOS 09/11/2016 BASILIOSMITH Jamal AUTOMOBILE BODY CUSTOMIZER Ot E03.9 HYPOTHYROIDISM, UNSPECIFIED 09/11/2016 SMITH BASILIO AUTOMOBILE BODY CUSTOMIZER Ot E10.9 TYPE 1 DIABETES MELLITUS WITHOUT COMPLIC 09/11/2016 SMITH BASILIO AUTOMOBILE BODY CUSTOMIZER Ot 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 09/11/2016 SMITH BASILIO AUTOMOBILE BODY CUSTOMIZER Ot M79.1 MYALGIA 09/11/2016 SMITH BASILIO AUTOMOBILE BODY CUSTOMIZER Ot R60.9 EDEMA, UNSPECIFIED 09/11/2016 RICCARDO BASILIOIA Jamal AUTOMOBILE BODY CUSTOMIZER Ot E01.0 IODINE-DEFICIENCY RELATED DIFFUSE (ENDEM 09/11/2016 SMITH BASILIO AUTOMOBILE BODY CUSTOMIZER Ot R10.2 PELVIC AND PERINEAL PAIN 09/11/2016 RICCARDO BASILIOIA Jamal AUTOMOBILE BODY CUSTOMIZER Ot Z12.31 ENCNTR SCREEN MAMMOGRAM FOR MALIGNANT NE 09/11/2016 PAVEL PAPPAS DO Ot D25.9 LEIOMYOMA OF [...] SCREENING FOR OTHER BACTER 09/26/[address] PAIN NOS 09/26/2016 Ot V58.67 DERRELL G-TERM (CURRENT) USE OF INSULIN 09/26/2016 Ot V58.69 OTH MED,LT,CURRENT USE 09/26/2016 SMITH BASILIO AUTOMOBILE BODY CUSTOMIZER Ot 790.99 BLOOD EXAM - OTH NONSPECIFIC FINDINGS 09/26/2016 SMITH BASILIO AUTOMOBILE BODY CUSTOMIZER Ot 368.8 VISUAL DISTURBANCES NEC 09/26/2016 SMITH BASILIO AUTOMOBILE BODY CUSTOMIZER Ot 784.0 HEADACHE 09/26/2016 SMITH BASILIO AUTOMOBILE BODY CUSTOMIZER Ot 794.4 ABN KIDNEY FUNCT STUDY 09/26/2016 Ot 021.9 TOBIAS REMIA NOS 09/26/2016 MSITH BASILIO AUTOMOBILE BODY CUSTOMIZER Ot E03.9 HYPOTHYROIDISM, UNSPECIFIED 09/26/2016 SMITH BASILIO AUTOMOBILE BODY CUSTOMIZER Ot E10.9 TYPE 1 DIABETES MELLITUS WITHOUT COMPLIC 09/26/2016 BASILIOSMITH STOLL AUTOMOBILE BODY CUSTOMIZER Ot 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 09/26/2016 BASILIOSMITH STOLL AUTOMOBILE BODY CUSTOMIZER Ot M79.1 MYALGIA 09/26/2016 CHETNA SMITH Berry AUTOMOBILE BODY CUSTOMIZER Ot R60.9 EDEMA, UNSPECIFIED 09/26/2016 SMITH BASILIO AUTOMOBILE BODY CUSTOMIZER Ot E01.0 IODINE-DEFICIENCY RELATED DIFFUSE (ENDEM 09/26/2016 SMITH BASILIO AUTOMOBILE BODY CUSTOMIZER Ot R10.2 PELVIC AND PERINEAL PAIN 09/26/2016 SMITH BASILIO AUTOMOBILE BODY CUSTOMIZER Ot Z12.31 ENCNTR SCREEN MAMMOGRAM FOR MALIGNANT NE 09/26/2016 SMITH BASILIO AUTOMOBILE BODY CUSTOMIZER Ot R10.2 PELVIC AND PERINEAL PAIN 09/26/2016 BASILIOSMITH STOLL AUTOMOBILE BODY CUSTOMIZER Ot R92.8 OTH ABN AND INCONCLUSIVE FINDINGS ON DX 09/27/2016 SMITH BASILIO AUTOMOBILE BODY CUSTOMIZER Ot R92.8 OTH ABN AND INCONCLUSIVE FINDINGS ON DX 09/28/2016 SMITH BASILIO AUTOMOBILE BODY CUSTOMIZER Ot R10.2 PELVIC AND PERINEAL PAIN 09/28/[address] PAIN NOS 09/28/2016 Ot V58.67 DERRELL G-TERM (CURRENT) USE OF INSULIN 09/28/2016 Ot V58.69 OTH MED,LT,CURRENT USE 09/28/2016 BASILIOSMITH STOLL AUTOMOBILE BODY CUSTOMIZER Ot 790.99 BLOOD EXAM - OTH NONSPECIFIC FINDINGS 09/28/2016 SMITH BASILIO AUTOMOBILE BODY CUSTOMIZER Ot 368.8 VISUAL DISTURBANCES NEC 09/28/2016 SMITH BASILIO AUTOMOBILE BODY CUSTOMIZER Ot 784.0 HEADACHE 09/28/2016 SMITH BASILIO AUTOMOBILE BODY CUSTOMIZER Ot 794.4 ABN KIDNEY FUNCT STUDY 09/28/2016 Ot 021.9 TOBIAS REMIA NOS 09/28/2016 BASILIOSMITH STOLL AUTOMOBILE BODY CUSTOMIZER Ot E03.9 HYPOTHYROIDISM, UNSPECIFIED 09/28/2016 SMITH BASILIO AUTOMOBILE BODY CUSTOMIZER Ot E10.9 TYPE 1 DIABETES MELLITUS WITHOUT COMPLIC 09/28/2016 BASILIOSMITH STOLL AUTOMOBILE BODY CUSTOMIZER Ot 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 09/28/2016 BASILIOTAE MARIAPORTILLO Berry AUTOMOBILE BODY CUSTOMIZER Ot M79.1 MYALGIA 09/28/2016 BASILIO SMITH Berry AUTOMOBILE BODY CUSTOMIZER Ot R60.9 EDEMA, UNSPECIFIED 09/28/2016 BASILIOSMITH STOLL AUTOMOBILE BODY CUSTOMIZER Ot E01.0 IODINE-DEFICIENCY RELATED DIFFUSE (ENDEM 09/28/2016 BASILIO SMITH Berry AUTOMOBILE BODY CUSTOMIZER Ot R10.2 PELVIC AND PERINEAL PAIN 09/28/2016 BASILIOSMITH STOLL AUTOMOBILE BODY CUSTOMIZER Ot Z12.31 ENCNTR SCREEN MAMMOGRAM FOR MALIGNANT NE 09/28/2016 CHETNA SMITH Berry AUTOMOBILE BODY CUSTOMIZER Ot R10.2 PELVIC AND PERINEAL PAIN 09/28/2016 BASILIOSMITH STOLL AUTOMOBILE BODY CUSTOMIZER Ot R92.8 OTH ABN AND INCONCLUSIVE FINDINGS ON DX 09/29/2016 PAVEL PAPPAS DO Ot D25.1 INTRAMURAL LEIOMYOMA OF UTERUS 09/29/2016 PAVEL PAPPAS DO S Ot D25.9 LEIOMYOMA OF UTERUS, UNSPECIFIED 09/29/2016 PAVEL PAPPAS DO S Ot 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 09/29/2016 PAVEL PAPPAS DO S Ot R10.2 PELVIC AND PERINEAL PAIN 10/04/2016 PAVEL PAPPAS DO Ot D25.1 INTRAMURAL LEIOMYOMA OF UTERUS 10/04/2016 PAVEL PAPPAS DO Ot 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 10/04/2016 PAVEL PAPPAS DO S Ot R10.2 PELVIC AND PERINEAL PAIN 10/04/2016 SMITH BASILIO AUTOMOBILE BODY CUSTOMIZER Ot R10.2 PELVIC AND PERINEAL PAIN 10/11/2016 BASILIOSMITH STOLL AUTOMOBILE BODY CUSTOMIZER Ot R92.8 OTH ABN AND INCONCLUSIVE FINDINGS ON DX 11/03/2016 CHETNASMITH AUTOMOBILE BODY CUSTOMIZER Ot M48.06 SPINAL STENOSIS, LUMBAR REGION 11/17/2016 CHETNASMITH AUTOMOBILE BODY CUSTOMIZER Ot M48.06 SPINAL STENOSIS, LUMBAR REGION 05/14/2017 CHERELLE ROOT MD Ot E10.649 TYPE 1 DIABETES MELLITUS WITH HYPOGLYCEM 05/14/2017 CHERELLE ROOT MD Ot E10 .9 TYPE 1 DIABETES MELLITUS WITHOUT COMPLIC 05/14/2017 CHERELLE ROOT MD, Ot F32 .9 MAJOR DEPRESSIVE DISORDER, SINGLE EPISOD 05/14/2017 CHERELLE ROOT MD Ot I10 ESSENTIAL (PRIMARY) HYPERTENSION 05/14/2017 CHERELLE ROOT MD, Ot Z79 .4 RETIREMENT (CURRENT) USE OF INSULIN 06/08/2017 SMITH BASILIO AUTOMOBILE BODY CUSTOMIZER Ot M48.06 SPINAL STENOSIS, LUMBAR REGION 06/12/2017 CHETNA SMITH Jamal AUTOMOBILE BODY CUSTOMIZER Ot R00.2 PALPITATIONS 08/18/2017 CHETNA SMITH Berry AUTOMOBILE BODY CUSTOMIZER Ot R00.2 PALPITATIONS 10/22/2019 TIAGO QUEZADA DOA K Ot E11.649 TYPE 2 DIABETES MELLITUS WITH HYPOGLYCEM 10/22/2019 DAMIEN GALICIA NOMI K Ot F32.9 MAJOR DEPRESSIVE DISORDER, SINGLE EPISOD 10/22/2019 DAMIEN GALICIA NOMI K Ot I10 ESSENTIAL (PRIMARY) HYPERTENSION 10/22/2019 TIAGO QUEZADA DOA K Ot M54.6 PAIN IN THORACIC SPINE 10/22/2019 DAMIEN GALICIA NOMI K Ot M79.7 FIBROMYALGIA 10/22/2019 DAMIEN GALICIA NOMI K Ot N39.0 URINARY TRACT INFECTION, SITE NOT SPECIF 10/22/2019 TIAGO QUEZADA DOA K Ot S20.221 A CONTUSION OF RIGHT BACK WALL OF THORAX, 10/22/2019 TIAGO QUEZADA DOA K Ot V58.4XX A PRSN BRD/ALIT PK-UP/VAN INJURED IN NONCL 10/22/2019 NOMI QUEZADA DO Ot Z79.4 PATIENT SITTER (CURRENT) USE OF INSULIN 10/22/2019 NOMI QUEZADA DO Ot Z82.49 FAMILY HX OF ISCHEM HEART DIS AND OTH DI 10/22/2019 NOMI QUEZADA DO Ot Z90.710 ACQUIRED ABSENCE OF BOTH CERVIX AND UTER Procedures There is no data. Results Test Result Range Complete blood count (CBC) with automate d white blood cell (WBC) differential - 09/11/16 15:40 Blood leukocytes automated count (number/volume) 5.7 10*3/uL 4.3-11.0 Blood erythrocytes automated count (number/volume) 3.92 10*6/uL 4.35-5.85 Venous blood hemoglobin measurement (mass/volume) 11.0 g/dL 11.5-16.0 Blood hematocrit (volume fraction) 34 % 35-52 Automated erythrocyte mean corpuscular volume 86 [ foz_us] 80-99 Automated erythrocyte mean corpuscular h emoglobin (mass per erythrocyte) 28 pg 25-34 Automated erythrocyte mean corpuscular h emoglobin concentration measurement (mass/volume) 33 g/dL 32-36 Automated erythrocyte distribution width ratio 12. 9 % 10.0- 14.5 Automated blood platelet count (count/volume) 350 10*3/uL 130-400 Automated blood platelet mean volume measurement 10.2 [foz_us] 7.4-10.4 Automated blood neutrophils/100 leukocytes 50 % 42-75 Automated blood lymphocytes/100 leukocytes 40 % 12-44 Blood monocytes/100 leukocytes 6 % 0-12 Automated blood eosinophils/100 leukocytes 3 % 0-10 Automated blood basophils/100 leukocytes 1 % 0-10 Blood neutrophils automated count (number/volume) 2.9 10*3 1.8-7.8 Blood lymphocytes automated count (number/volume) 2.3 10*3 1.0-4.0 Blood monocytes automated count (number/volume) 0. 4 10*3 0.0-1.0 Automated eosinophil count 0.2 10*3/uL 0 .0-0.3 Automated blood basophil count (count/volume) 0.0 10*3/uL 0.0-0.1 Blood type T Indirect antibody screen pa puneet - 09/11/16 15:40 ABO+Rh group OP NRG Blood group antibody screen NEGATIVE NR G Methicillin resistant Staphylococcus aur eus (MRSA) screening culture - 09/11/16 15:40 Methicillin resistant Staphylococcus aureus (MRSA) scr eening culture NEG NRG Urine beta human chorionic gonadotropin (hCG) measurement - 09/28/16 06:10 Urine beta human chorionic gonadotropin (hCG) measurem ent NEGATIVE NEGATIVE Capillary blood glucose measurement by g lucometer (mass/volume) - 09/28/16 06:33 Capillary blood glucose measurement by glucometer (mas s/volume) 330 mg/dL 70-110 Blood type T Indirect antibody screen pa puneet - 09/28/16 06:33 ABO+Rh group OP NRG Transfusion band number [id number] NRG Blood group antibody screen NEGATIVE NR G Capillary blood glucose measurement by g lucometer (mass/volume) - 09/28/16 09:18 Capillary blood glucose measurement by glucometer (mas s/volume) 292 mg/dL 70-110 Capillary blood glucose measurement by g lucometer (mass/volume) - 05/14/17 08:40 Capillary blood glucose measurement by glucometer (mas s/volume) 201 mg/dL 70-110 Complete urinalysis with reflex to cultu re - 05/14/17 08:40 Urine color determination YELLOW NRG Urine clarity determination CLEAR NR G Urine pH measurement by test strip 5 5-9 Specific gravity of urine by test strip 1.020 1.016-1.022 Urine protein assay by test strip, semi-quantitative 2+ NEGATIVE Urine glucose detection by automated test strip 3+ NEGATIVE Erythrocytes detection in urine sediment by light micr oscopy NEGATIVE NEGATIVE Urine ketones detection by automated test strip NE GATIVE NEGATIVE Urine nitrite detection by test strip NEGATIVE NEGATIVE Urine total bilirubin detection by test strip NEGA TIVE NEGATIVE Urine urobilinogen measurement by automated test strip (mass/volume) NORMAL NORMAL Urine leukocyte esterase detection by dipstick NEG ATIVE NEGATIVE Automated urine sediment erythrocyte cou nt by microscopy (number/high power field) NONE NRG Automated urine sediment leukocyte count by microscopy (number/high power field) RARE NRG Bacteria detection in urine sediment by light microsco py TRACE NRG Squamous epithelial cells detection in u rine sediment by light microscopy 2-5 NRG Crystals detection in urine sediment by light microsco py NONE NRG Casts detection in urine sediment by light microscopy NONE NRG Mucus detection in urine sediment by light microscopy NEGATIVE NRG Complete urinalysis with reflex to culture NO NRG Urine drug screening test - 05/14/17 08: 40 Urine phencyclidine detection by screening method NEGATIVE NEGATIVE Urine benzodiazepines detection by screening method NEGATIVE NEGATIVE Urine cocaine detection NEGATIVE NEGATI VE Urine amphetamines detection by screening method P OSITIVE NEGATIVE Urine methamphetamine detection by screening method NEGATIVE NEGATIVE Urine cannabinoids detection by screening method N EGATIVE NEGATIVE Urine opiates detection by screening method NEGATI VE NEGATIVE Urine barbiturates detection NEGATIVE N EGATIVE Screening urine tricyclic antidepressants detection NEGATIVE NEGATIVE Urine methadone detection by screening method NEGA TIVE NEGATIVE Urine oxycodone detection NEGATIVE NEGA TIVE Urine propoxyphene detection NEGATIVE N EGATIVE Complete blood count (CBC) with automate d white blood cell (WBC) differential - 05/14/17 09:15 Blood leukocytes automated count (number/volume) 8.8 10*3/uL 4.3-11.0 Blood erythrocytes automated count (number/volume) 3.85 10*6/uL 4.35-5.85 Venous blood hemoglobin measurement (mass/volume) 10.7 g/dL 11.5-16.0 Blood hematocrit (volume fraction) 33 % 35-52 Automated erythrocyte mean corpuscular volume 85 [ foz_us] 80-99 Automated erythrocyte mean corpuscular h emoglobin (mass per erythrocyte) 28 pg 25-34 Automated erythrocyte mean corpuscular h emoglobin concentration measurement (mass/volume) 33 g/dL 32-36 Automated erythrocyte distribution width ratio 12. 8 % 10.0- 14.5 Automated blood platelet count (count/volume) 333 10*3/uL 130-400 Automated blood platelet mean volume measurement 10.0 [foz_us] 7.4-10.4 Automated blood neutrophils/100 leukocytes 82 % 42-75 Automated blood lymphocytes/100 leukocytes 15 % 12-44 Blood monocytes/100 leukocytes 3 % 0-12 Automated blood eosinophils/100 leukocytes 0 % 0-10 Automated blood basophils/100 leukocytes 0 % 0-10 Blood neutrophils automated count (number/volume) 7.3 10*3 1.8-7.8 Blood lymphocytes automated count (number/volume) 1.3 10*3 1.0-4.0 Blood monocytes automated count (number/volume) 0. 2 10*3 0.0-1.0 Automated eosinophil count 0.0 10*3/uL 0 .0-0.3 Automated blood basophil count (count/volume) 0.0 10*3/uL 0.0-0.1 Comprehensive metabolic panel - 05/14/17 09:15 Serum or plasma sodium measurement (moles/volume) 137 mmol/L 135-145 Serum or plasma potassium measurement (moles/volume) 4.7 mmol/L 3.6-5.0 Serum or plasma chloride measurement (moles/volume) 105 mmol/L 98-107 Carbon dioxide 24 mmol/L 21-32 Serum or plasma anion gap determination (moles/volume) 8 mmol/L 5-14 Serum or plasma urea nitrogen measurement (mass/volume ) 24 mg/dL 7-18 Serum or plasma creatinine measurement (mass/volume) 0.95 mg/dL 0.60-1.30 Serum or plasma urea nitrogen/creatinine mass ratio 25 0-20 Serum or plasma creatinine measurement w ith calculation of estimated glomerular filtration rate > NRG Serum or plasma glucose measurement (mass/volume) 250 mg/dL 70-105 Serum or plasma calcium measurement (mass/volume) 8.6 mg/dL 8.5-10.1 Serum or plasma total bilirubin measurement (mass/volu me) 0.3 mg/dL 0.1-1.0 Serum or plasma alkaline phosphatase frances surement (enzymatic activity/volume) 97 U/L 40-136 Serum or plasma aspartate aminotransfera se measurement (enzymatic activity/volume) 30 U/L 5-34 Serum or plasma alanine aminotransferase measurement (enzymatic activity/volume) 13 U/L 0-55 Serum or plasma protein measurement (mass/volume) 6.8 g/dL 6.4-8.2 Serum or plasma albumin measurement (mass/volume) 3.8 g/dL 3.2-4.5 Serum or plasma acetaminophen measuremen t (mass/volume) - 05/14/17 09:15 Serum or plasma acetaminophen measurement (mass/volume ) < ug/mL 10-30 Serum or plasma ethanol measurement (mas s/volume) - 05/14/17 09:15 Serum or plasma ethanol measurement (mass/volume) < mg/dL <10 Complete blood count (CBC) with automate d white blood cell (WBC) differential - 10/17/19 18:10 Blood leukocytes automated count (number/volume) 6.7 10*3/uL 4.3-11.0 Blood erythrocytes automated count (number/volume) 4.05 10*6/uL 4.35-5.85 Venous blood hemoglobin measurement (mass/volume) 11.3 g/dL 11.5-16.0 Blood hematocrit (volume fraction) 34 % 35-52 Automated erythrocyte mean corpuscular volume 84 [ foz_us] 80-99 Automated erythrocyte mean corpuscular h emoglobin (mass per erythrocyte) 28 pg 25-34 Automated erythrocyte mean corpuscular h emoglobin concentration measurement (mass/volume) 33 g/dL 32-36 Automated erythrocyte distribution width ratio 14. 0 % 10.0- 14.5 Automated blood platelet count (count/volume) 417 10*3/uL 130-400 Automated blood platelet mean volume measurement 10.4 [foz_us] 7.4-10.4 Automated blood neutrophils/100 leukocytes 61 % 42-75 Automated blood lymphocytes/100 leukocytes 30 % 12-44 Blood monocytes/100 leukocytes 7 % 0-12 Automated blood eosinophils/100 leukocytes 2 % 0-10 Automated blood basophils/100 leukocytes 0 % 0-10 Blood neutrophils automated count (number/volume) 4.1 10*3 1.8-7.8 Blood lymphocytes automated count (number/volume) 2.0 10*3 1.0-4.0 Blood monocytes automated count (number/volume) 0. 5 10*3 0.0-1.0 Automated eosinophil count 0.1 10*3/uL 0 .0-0.3 Automated blood basophil count (count/volume) 0.0 10*3/uL 0.0-0.1 PT panel in platelet poor plasma by coag ulation assay - 10/17/19 18:10 Prothrombin time (PT) in platelet poor plasma by coagu lation assay 13.5 s 12.2-14.7 INR in platelet poor plasma or blood by coagulation as say 1.0 0.8-1.4 Activated partial thromboplastin time (a PTT) in platelet poor plasma bycoagulation assay - 10/17/19 18:10 Activated partial thromboplastin time (a PTT) in platelet poor plasma bycoagulation assay 36 s 24-35 Comprehensive metabolic panel - 10/17/19 18:10 Serum or plasma sodium measurement (moles/volume) 138 mmol/L 135-145 Serum or plasma potassium measurement (moles/volume) 4.1 mmol/L 3.6-5.0 Serum or plasma chloride measurement (moles/volume) 105 mmol/L 98-107 Carbon dioxide 20 mmol/L 21-32 Serum or plasma anion gap determination (moles/volume) 13 mmol/L 5-14 Serum or plasma urea nitrogen measurement (mass/volume ) 26 mg/dL 7-18 Serum or plasma creatinine measurement (mass/volume) 1.21 mg/dL 0.60-1.30 Serum or plasma urea nitrogen/creatinine mass ratio 21 NRG Serum or plasma creatinine measurement w ith calculation of estimated glomerular filtration rate 46 NRG Serum or plasma glucose measurement (mass/volume) 41 mg/dL 70-105 Serum or plasma calcium measurement (mass/volume) 9.6 mg/dL 8.5-10.1 Serum or plasma total bilirubin measurement (mass/volu me) 0.2 mg/dL 0.1-1.0 Serum or plasma alkaline phosphatase frances surement (enzymatic activity/volume) 86 U/L 40-136 Serum or plasma aspartate aminotransfera se measurement (enzymatic activity/volume) 36 U/L 5-34 Serum or plasma alanine aminotransferase measurement (enzymatic activity/volume) 17 U/L 0-55 Serum or plasma protein measurement (mass/volume) 7.4 g/dL 6.4-8.2 Serum or plasma albumin measurement (mass/volume) 4.4 g/dL 3.2-4.5 CALCIUM CORRECTED 9.3 mg/dL 8.5-10.1 Capillary blood glucose measurement by g lucometer (mass/volume) - 10/17/19 18:39 Capillary blood glucose measurement by glucometer (mas s/volume) 319 mg/dL 70-110 Capillary blood glucose measurement by g lucometer (mass/volume) - 10/17/19 18:40 Capillary blood glucose measurement by glucometer (mas s/volume) 221 mg/dL 70-110 Complete urinalysis with reflex to cultu re - 10/17/19 19:40 Urine color determination YELLOW NRG Urine clarity determination CLEAR NR G Urine pH measurement by test strip 5.5 5-9 Specific gravity of urine by test strip >= 1.016-1.022 Urine protein assay by test strip, semi-quantitative TRACE NEGATIVE Urine glucose detection by automated test strip NE GATIVE NEGATIVE Erythrocytes detection in urine sediment by light micr oscopy NEGATIVE NEGATIVE Urine ketones detection by automated test strip NE GATIVE NEGATIVE Urine nitrite detection by test strip NEGATIVE NEGATIVE Urine total bilirubin detection by test strip NEGA TIVE NEGATIVE Urine urobilinogen measurement by automated test strip (mass/volume) 0.2 mg/dL < = 1.0 Urine leukocyte esterase detection by dipstick 1+ NEGATIVE Automated urine sediment erythrocyte cou nt by microscopy (number/high power field) [HPF] NRG Automated urine sediment leukocyte count by microscopy (number/high power field) [HPF] NRG Bacteria detection in urine sediment by light microsco py TRACE NRG Crystals detection in urine sediment by light microsco py NONE NRG Casts detection in urine sediment by light microscopy NONE NRG Mucus detection in urine sediment by light microscopy NEGATIVE NRG Complete urinalysis with reflex to culture YES NRG Bacterial urine culture - 10/17/19 19:40 Bacterial urine culture 3 OR MORE NRG COLONY COUNT 20,000 CFU/ML NRG FTX;REPORTABLE (GRAM POSITIVE) SUGGESTING PROBABLE NRG FREE TEXT ENTRY 2 COLLECTION CONTAMINATION WITH SK IN LEATHA NRG FREE TEXT ENTRY 3 NO SUSCEPTIBILITY PERFORMED NRG Capillary blood glucose measurement by g lucometer (mass/volume) - 10/17/19 19:41 Capillary blood glucose measurement by glucometer (mas s/volume) 43 mg/dL 70-110 Capillary blood glucose measurement by g lucometer (mass/volume) - 10/17/19 20:34 Capillary blood glucose measurement by glucometer (mas s/volume) 61 mg/dL 70-110 Encounters ACCT No. Visit Date/Time Discharge Status Pt. Type Provider Facility Loc./Unit Complaint [id number] 10/17/2019 17:03:00 019 20:39:00 DIS Outpatient NOMI QUEZADA DO [facility] ER BACK / CHEST PAIN - FA LL [id number] 08/19/2017 10:45:00 017 23:59:59 CLS Preadmit SMITH BASILIO [employer] [facility] CARD PALPITATIONS [id number] 06/11/2017 10:12:00 017 00:01:00 DIS Outpatient SM[employer] [facility] CARD PALPITATIONS [id number] 05/14/2017 08:22:00 017 11:38:00 DIS Emergency IVETT RIVERA, CHERLELE Curtis [facility] ER BLOOD SUGAR ISSUES//LOS S OF MEMORY [id number] 10/31/2016 12:17:00 23:59:59 CLS Outpatient SMITH BASILIO [employer] [facility] RAD RADIOCULOPATHY [id number] 09/28/2016 06:10:00 11:46:00 DIS Outpatient PAVEL PAPPAS DO [facility] SDC PELVIC PAIN [id number] 09/26/2016 08:25:00 23:59:59 CLS Outpatient SMITH BASILIO [employer] [facility] RAD ABN MAMMO [id number] 09/22/2016 10:04:00 23:59:59 CLS Outpatient SMITH BASILIO [employer] [facility] RAD PELVIC PAIN [id number] 09/11/2016 15:14:00 15:45:00 DIS Outpatient PAVEL PAPPAS DO [facility] PREOP PELVIC PAIN [id number] 07/18/2016 13:48:00 016 23:59:59 CLS Outpatient SMITH BASILIO [employer] [facility] RAD PELVIC PAIN,ROU JANET [id number] 02/16/2016 08:15:00 016 23:59:59 CLS Outpatient LYNNE BROWN MD [facility] THYROID NODULE,SKIN TA G [id number] 02/10/2016 08:48:00 016 09:25:00 DIS Outpatient LYNNE BROWN MD [facility] PREOP THYROID NODULE [id number] 01/03/2016 09:06:00 23:59:59 CLS Outpatient SMITH BASILIO [employer] [facility] RAD ENLARGED THYROI D [id number] 11/04/2015 10:25:00 23:59:59 CLS Outpatient RICCARDO BASILIOIA L [employer]OM[employer]BI[employer] C[employer]OM[employer]ER [facility] LAB TYPE I DM,HYPOPIT,HYPOTHYROID,EDEMA,MYALJIA [id number] 08/05/2015 16:07:00 015 17:11:00 DIS Emergency STEFANY MARROQUIN APRN [facility] ER L WRIST PAIN/INJ [id number] 07/10/2014 10:18:00 00:01:00 DIS Outpatient SMITH BASILIO [employer] [facility] SURG RCR TU/ANEMIA [id number] 08/17/2014 08:28:00 23:59:59 CLS Outpatient SMIHT BASILIO [employer] C[employer] [facility] RAD HEADACHE BLURRY VISION [id number] 07/31/2014 13:52:00 23:59:59 CLS Preadmit FRANKLIN BASILIO DO [facility] LAB [id number] 07/29/2014 10:51:00 23:59:59 CLS Outpatient SMITH BASILIO [employer] [facility] LAB ELEVATED BUN AN D CREATINE [id number] 07/21/2014 18:42:00 12:20:00 DIS Inpatient FRANKLIN BASILIO DO [facility] 4TH ARF,UTI [id number] 09/21/2014 00:00:00 Document Registration [id number] 09/28/2011 06:18:00 Document Registration [id number] 01/17/2011 10:56:00 Document Registration [id number] 01/04/2011 14:58:00 Document Registration [id number] 12/28/2010 14:40:00 Document Registration [id number] 09/22/2010 09:15:00 Document Registration
== END 2019-10-17 20:39 | disposition home or self-care (01) ==
LOC: EDUNIT# 17:01 → ER 17:03
DX: S20.221A Contusion of right back wall of thorax, initial encounter (principal); E11.649 Type 2 diabetes mellitus with hypoglycemia without coma; N39.0 Urinary tract infection, site not specified; I10 Essential (primary) hypertension; M79.7 Fibromyalgia; F32.9 Major depressive disorder, single episode, unspecified; Z79.4 Long term (current) use of insulin; Z90.710 Acquired absence of both cervix and uterus; Z82.49 Family history of ischemic heart disease and other diseases of the circulatory system; V58.4XXA Person boarding or alighting a pick-up truck or van injured in noncollision transport accident, initial encounter
CPT/HCPCS: 36415; 71046; 71100; 71250; 74176; 80053; 81000; 82962; 85025; 85610; 85730; 87088; 96374; 96375; 96376

== ENCOUNTER 2020-08-09 12:05 | Emergency (ER) | payer OTHER ==
[~2020-08-09] VITALS: Ht 170.1 cm; Wt 113.3 kg
[~2020-08-09 12:05] MED LIST changes: +CYCL10TA9 PO; +KETO10TA PO; +METF-865 PO; -METF500T8 PO; +NITR-65 PO
[2020-08-09] MEDS ORDERED: LACTATED RINGERS 1,000 ML IV ONE (12:23)
[2020-08-09 12:47] LABS: BILIRUBIN,URINE NEGATIVE (NEGATIVE); CLARITY,URINE CLEAR; COLOR,URINE YELLOW; GLUCOSE, URINE (UA) NEGATIVE (NEGATIVE); KETONES,URINE NEGATIVE (NEGATIVE); LEUKOCYTE ESTERASE ,URINE NEGATIVE (NEGATIVE); NITRITE,URINE NEGATIVE (NEGATIVE); PROTEIN,URINE TRACE (NEGATIVE)
[2020-08-09 12:58] LABS: BASOPHILS % (AUTO) 0 % (0-10); EOSINOPHILS # (AUTO) 0.4 10^3/uL (0.0-0.3); EOSINOPHILS % (AUTO) 5 % (0-10); HEMATOCRIT 33 % (35-52); HEMOGLOBIN 10.6 G/DL (11.5-16.0); LYMPHOCYTES # (AUTO) 1.6 X 10^3 (1.0-4.0); LYMPHOCYTES % (AUTO) 21 % (12-44); MEAN CORPUSCULAR HEMOGLOBIN 27 PG (25-34); MEAN CORPUSCULAR HGB CONC 32 G/DL (32-36); MEAN CORPUSCULAR VOLUME 86 FL (80-99); MONOCYTES # (AUTO) 0.5 X 10^3 (0.0-1.0); MONOCYTES % (AUTO) 6 % (0-12); NEUTROPHILS # (AUTO) 5.2 X 10^3 (1.8-7.8); NEUTROPHILS % (AUTO) 68 % (42-75); PLATELET COUNT 357 10^3/uL (130-400); WHITE BLOOD COUNT 7.7 10^3/uL (4.3-11.0)
[2020-08-09 13:00] LABS: WBC,URINE 0-2 /HPF
[2020-08-09 13:01] LABS: BACTERIA,URINE NEGATIVE /HPF
[2020-08-09 13:01] LABS: ALBUMIN 3.9 GM/DL (3.2-4.5); POTASSIUM 3.7 MMOL/L (3.6-5.0)
[2020-08-09 13:02] LABS: CALCIUM 8.5 MG/DL (8.5-10.1)
[2020-08-09 13:03] LABS: TOTAL PROTEIN 6.7 GM/DL (6.4-8.2)
[2020-08-09 13:05] LABS: BILIRUBIN,TOTAL 0.2 MG/DL (0.1-1.0)
[2020-08-09 13:07] LABS: CREATININE SERUM 0.99 MG/DL (0.60-1.30)
[2020-08-09 13:10] LABS: MAGNESIUM 1.9 MG/DL (1.6-2.4)
[2020-08-09 13:30] LABS: FREE T4 (FREE THYROXINE) 1.14 NG/DL (0.70-1.48)
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
[2020-08-09 14:07] VITALS: BP 146/94
== END 2020-08-09 14:09 | disposition home or self-care (01) ==
LOC: EDUNIT# 12:05 → ER 12:06
DX: E10.649 Type 1 diabetes mellitus with hypoglycemia without coma (principal); R41.82 Altered mental status, unspecified; Z82.61 Family history of arthritis; Z82.49 Family history of ischemic heart disease and other diseases of the circulatory system
CPT/HCPCS: 36415; 80053; 81000; 82962; 83735; 84439; 84443; 85025

== ENCOUNTER → 2020-10-12 | Outpatient (CLI) | payer OTHER ==
--- NOTE | 2020-10-12 10:57 | Diagnostic Imaging Report ---
Indication: Screening. The current study was also evaluated with a Computer Aided Detection (CAD) system. 3-D Tomographic imaging was also performed. Comparison made with prior examination from 07/18/2016 and 12/28/2010. FINDINGS: There is scattered fibroglandular densities bilaterally. There is an unchanged well-circumscribed mass in the medial right breast. There are scattered benign type calcifications. There is no other dominant mass, spiculated lesion or suspicious calcifications identified. Skin, nipples and axilla are unremarkable. IMPRESSION: Category 2 benign ACR BI-RADS Category 2: Benign findings. Result letter will be mailed to the patient. Note: At least 10% of breast cancer is not imaged by mammography. Dictated by: Dictated on workstation # [id number]
== END ==
LOC: RAD 09:02
PROVIDERS: ATTEND Nurse Practitioner Family
DX: Z12.31 Encounter for screening mammogram for malignant neoplasm of breast (principal)
CPT/HCPCS: 77063; 77067

== ENCOUNTER → 2021-07-04 | Outpatient (CLI) | payer OTHER ==
[~2021-07-04] MED LIST changes: -LISI-552 PO; +LISI20TA26 PO; +PHEN37.58 PO
--- NOTE | 2021-07-04 16:45 | Diagnostic Imaging Report ---
INDICATION: Shoulder contusion. Injury. COMPARISON: None FINDINGS: Multiple radiographic views of the right shoulder were obtained. There is comminuted primarily transverse oriented fracture through the surgical neck of the proximal right humerus. There is mild angulation with the apex projecting laterally. Note is made of soft tissue calcification seen lateral to the fracture site. No distinct underlying osteolytic process is seen. No unexpected radiopaque foreign bodies are identified. Included portions of the right hemithorax are clear. Old healed right-sided rib fractures are also present. IMPRESSION: 1. Fracture of the proximal right humerus. Adjacent soft tissue calcification suggests early bridging callus formation/healing. Underlying pathologic fracture with soft tissue extension cannot be excluded. Correlation with timing of the injury is recommended. If there is concern for pathologic fracture, MRI is recommended. Dictated by: Dictated on workstation # [id number]
== END ==
LOC: RAD 14:12
PROVIDERS: ATTEND Nurse Practitioner Family
DX: S42.201A Unspecified fracture of upper end of right humerus, initial encounter for closed fracture (principal); X58.XXXA Exposure to other specified factors, initial encounter
CPT/HCPCS: 73030